=== PATIENT | male | born 1985 | race Asian ===

== ENCOUNTER 2021-08-01 12:13 | Outpatient (REF) | payer SELFPAY ==
[2021-08-01 13:40] LABS: Binax Internal Control QC Valid; Binax Now Covid-19 Ag Negative (Negative)
== END 2021-08-01 12:14 | disposition home or self-care (01) ==
LOC: HO.LAB 12:13
PROVIDERS: Visit Provider Internal Medicine
DX: Z20.822 Contact with and (suspected) exposure to COVID-19 (principal)
CPT/HCPCS: 36415; C9803

== ENCOUNTER 2021-08-12 12:13 | Outpatient (REF) | payer SELFPAY ==
[2021-08-12 15:39] LABS: Binax Internal Control QC Valid; Binax Lot number: 17705; Binax Now Covid-19 Ag Negative (Negative)
== END 2021-08-12 12:14 | disposition home or self-care (01) ==
LOC: HO.LAB 12:13
PROVIDERS: Visit Provider Internal Medicine
DX: Z20.822 Contact with and (suspected) exposure to COVID-19 (principal)
CPT/HCPCS: C9803

== ENCOUNTER 2024-10-17 09:00 | Outpatient (AMB) | payer OTHER, SELFPAY ==
--- NOTE | 2024-10-17 09:08 | A.OFFPC_ITS ---
Vital Signs 10/17/24 09:11 Height 5 ft 10 in Weight 178 lb 8 oz BMI 25.6 BP 106/64 Blood Pressure Location Lt brachial Position Sitting Pulse 59 Pulse Source Pulse Oximeter Pulse Oximetry (%) 97 Oxygen Delivery Method Room Air Intake Visit Reasons: establish care Medical Imaging Specialist Required: No Accompanied by: Spouse Allergies No Known Allergies Allergy (Verified 10/17/24 09:45) Medication List - Last Reconciled 10/17/24 by Tomas Jimenes MD csmpjdbb-hjv-psrph-vit K-lycop 400-20-300 mcg (One-A-Day Men's Multivitamin) 1 tab PO DAILY omega 4-czs-vql-fish oil 1,200 (144-216) mg (Fish Oil) 1 cap PO DAILY Tobacco use date assessed: 10/17/24 Dental Screening Dental Screen Date: 10/17/24 Did you have a dental visit in the last 12 months?: No Did you have a dental problem in the last 6 months where you did not have access to dental care?: No Was dental information given to patient?: No HPI establish care HPI Details Patient comes in today for his annual physical examination and to establish care - is a new patient to the practice Patient states that he currently feels okay but he has not seen a doctor in several years Thinks that the last time he saw a doctor was when he was still living in [place] several years ago States that he is generally healthy and recalls that the only problem he's had so far was that he was told in the past that he had a slightly high cholesterol level He denies any headaches or dizziness Denies any chest pains, no SOB No nausea/vomiting, no abdominal pain although he reports feeling gassy often lately Relates also that he has some loose stools/diarrhea every now and then - states that he would get them for a day or two whenever they occur He denies any acute urinary symptoms PFSH Medical History (Updated 10/17/24 @ 10:30 by Tomas Jimenes MD) Hyperlipidemia Surgical History (Updated 10/17/24 @ 09:49 by Tomas Jimenes MD) No pertinent past surgical history Family History Other Family history non-contributory Social History Housing: House Patient Tobacco Use Status: Never used Tobacco e-Cigarette/Vaping Use: Never Used Second Hand Smoke Exposure: No service: No Current occupational status: employed Current occupational exposures/hazards: No Cognitive needs: No Hearing needs: No Vision needs: Yes Questionnaire PHQ-9 Over the last 2 weeks, how often have you been bothered by any of the following problems? 1. Little interest or pleasure in doing things: not at all 2. Feeling down, depressed, or hopeless: not at all 3. Trouble falling or staying asleep, or sleeping too much: not at all 4. Feeling tired or having little energy: not at all 5. Poor appetite or overeating: not at all 6. Feeling bad about yourself - or that you are a failure or have let yourself or your family down: not at all 7. Trouble concentrating on things, such as reading the newspaper or watching television: not at all 8. Moving or speaking so slowly that other people could have noticed. Or the opposite - being so fidgety or restless that you have been moving around a lot more than usual: not at all 9. Thoughts that you would be better off or of hurting yourself in some way: not at all Total score: 0 Depression Screening Interpretation: Negative Depression Screening Done: Yes 53355 - PHQ-9 Billing: Yes Source: Developed by Drs. Danilo Latif, Minal Jiménez, Imtiaz Aguilera and colleagues, with an educational anali from [employer]. Thrive Questionnaire Date Thrive assessed: 10/17/24 I am a: Patient What is your living situation today?: I have a steady place to live Within the past 12 months, did the food you bought not last and you didn't have the money to get more?: Never true Within the past 12 months, did you worry whether your food would run out before you got money to buy more?: Never true Do you have trouble paying for medicines?: No Do you have trouble getting transportation to medical appointments?: No Do you have trouble paying your heating and electricity bill?: No Do you have trouble taking care of your child, family member or friend?: No Do you have trouble with day-to-day activities such as bathing, preparing meals, shopping, managing finances, etc.?: No Are you currently unemployed and looking for a job?: No Are you interested in more education?: No Please select the resources that you would like help with: None Currently or been in a relationship where the following occur: No concerns reported THRIVE Score: 0 AUDIT C Alcohol Use Questionnaire (AUDIT-C) 1. How often do you have a drink containing alcohol?: Never 3. How often do you have six or more drinks on one occasion?: Never Total Score: 0 Score Reviewed/Action Taken: Yes DEVIKA-7 AMB Questionnaire DEVIKA-7 Date DEVIKA - 7 assessed: 10/17/24 Feeling nervous, anxious, or on edge: 0 = Not at all Not being able to stop or control worryin = Not at all Worrying too much about different things: 0 = Not at all Trouble relaxin = Not at all Being so restless that it is hard to sit still: 0 = Not at all Becoming easily annoyed or irritable: 0 = Not at all Feeling afraid as if something awful might happen: 0 = Not at all Total DEVIKA-7 score (0-4 normal; 5-9 mild; 10-14 moderate; 15-21 severe): 0 Source: Developed by Drs. Danilo Latif, Minal Jiménez, Imtiaz Aguilera and colleagues, with an educational anali from [employer]. Review of Systems Const Denies chills, Denies fatigue, Denies fever(s), Denies headache(s), Denies malaise, Reports snoring and Denies weakness Eyes Denies blurry vision, Denies change in vision, Denies irritation and Denies itchy eyes ENT Denies dysphagia, Denies dizziness, Denies otalgia, Denies headache(s), Denies nasal congestion, Denies neck pain, Denies odynophagia and Denies sore throat Card Denies chest pain, Denies rapid heart rate, Denies irregular heart rhythm, Denies palpitations and Denies dyspnea Resp Denies chest congestion, Denies cough, Denies dyspnea, Reports snoring and Denies wheezing GI Denies abdominal pain, Reports bloating (at times - feels gassy often), Denies hematochezia, Denies constipation, Denies dysphagia, Denies heartburn, Reports diarrhea (occasional), Denies nausea, Denies odynophagia and Denies vomiting Denies hematuria, Denies difficulty urinating, Denies dysuria, Denies urinary fr equency and Denies urinary urgency Musc Denies back pain, Denies arthralgias, Denies joint swelling, Denies muscle weakness and Denies neck pain Skin/Breast Denies change in pigmentation, Denies lesions, Denies rash and Denies unusual bruising Neuro Denies dizziness, Denies headache(s), Denies paresthesias and Denies weakness Endo Denies fatigue and Denies palpitations Aller/Immun Denies itchy eyes and Denies wheezing Physical exam (Primary Care) Vital Signs: Last Vital Signs Pulse 59 10/17/24 09:11 BP 106/64 10/17/24 09:11 Pulse Ox 97 10/17/24 09:11 Oxygen Delivery Method Room Air 10/17/24 09:11 BMI result Body Mass Index 25.6 Tobacco/Smoking Status: Tobacco use Status Tobacco use date assessed 10/17/24 10/17/24 09:16 Patient Tobacco Use Status Never used Tobacco 10/17/24 09:16 e-Cigarette/Vaping Use Never Used 10/17/24 09:16 PHQ-9: PHQ-9 Score PHQ-9: Total score 0 10/17/24 09:10 Depression Screening Interpretation: Negative Thrive Assessment: Date of Thrive Assessment Date Thrive assessed 10/17/24 10/17/24 09:16 Currently or been in a relationship where the following occur: No concerns reported Const General: no acute distress, alert and awake Orientation/consciousness: patient oriented x3 HENMT Head: Yes normocephalic and Yes atraumatic Ears: external ears normal, TM's normal bilaterally and EAC's normal General nose exam: No nasal discharge present Face and sinus: Yes normal facial exam and Yes sinuses nontender Teeth and gingiva: dentition normal Throat: Yes posterior oropharynx normal and Yes tonsils normal (no TP congestion) Eyes Eyelids: Yes eyelids normal Conjunctivae: conjunctivae normal Pupils: Equal, round and reactive pupils present EOM: EOMs intact bilaterally Neck Neck: Yes no lymphadenopathy and Yes supple Thyroid: Thyroid normal Resp Auscultation: clear to auscultation bilaterally, no rales and no wheezes Cardio Rate: regular rate Rhythm: regular rhythm Heart sounds: no murmurs GI Palpation (GI): Soft to palpation, nontender and No hepatosplenomegaly present Auscultation: normal bowel sounds General: Yes no CVA tenderness Back/Spine/Pelvis Back: no CVA tenderness Thoracic/Lumbar Spine: thoracic and lumbar spine normal to inspection Skin Lesions: no lesions Rashes: no rashes Neuro General: patient oriented x3, moves all extremities, no focal motor deficits and CN's II-XI intact bilaterally Cranial nerves: Yes Equal, round and reactive pupils present Cognition (Neuro): normal cognition Gait exam (Neuro): Normal gait present Extrem General: Yes no clubbing, cyanosis or edema Coding Level of Care Code New Pt Prev Care 40-64y(72142) Diagnoses Annual physical exam Z00.00 Hyperlipidemia, unspecified hyperlipidemia type E78.5 Hyperlipidemia type: unspecified Loose stools R19.5 Additional Codes PHQ-9 - 33967 - PHQ-9 Billing: Yes ([id number]) Assessment & Plan Assessment & Plan (1) Annual physical exam: Code(s): Z00.00 - Encounter for general adult medical examination without abnormal findings Category: Medical Plan: Check labs (2) Hyperlipidemia: Code(s): E78.5 - Hyperlipidemia, unspecified Category: Medical Qualifiers: Hyperlipidemia type: unspecified Qualified Code(s): E78.5 - Hyperlipidemia, unspecified Plan: Discussed low cholesterol diet Will check his fasting lipids REGI for follow up (3) Loose stools: Code(s): R19.5 - Other fecal abnormalities Category: Medical Plan: Patient is advised that this may be mostly related to what he ate at the time of his symptoms He is instructed to try paying more attention to what he has eaten lately whenever his bouts of diarrhea occurs - discussed lactose intolerance as a likely possibility as well Will look into this further if his symptoms continue to persist or progress Plan Follow up in 6 months Orders: Orders Complete Blood Count Auto Diff Today D64.9 - Anemia, unspecified, Z00.00 - Encounter for general adult medical examination without abnormal findings Lipid Panel Today E78.00 - Pure hypercholesterolemia, unspecified, Z00.00 - Encounter for general adult medical examination without abnormal findings TSH reflex Free T4 Today E78.00 - Pure hypercholesterolemia, unspecified, Z00.00 - Encounter for general adult medical examination without abnormal findings UA CC w/rflx Micro + Cult Today R30.0 - Dysuria, Z00.00 - Encounter for general adult medical examination without abnormal findings Comprehensive [place]. Panel Fast Today E78.00 - Pure hypercholesterolemia, unspecified, Z00.00 - Encounter for general adult medical examination without abnormal findings Vitamin D 25-OH Total Today E55.9 - Vitamin D deficiency, unspecified, Z00.00 - Encounter for general adult medical examination without abnormal findings
[2024-10-17 09:11] VITALS: BP 106/64; PULSE 59; O2SAT 97; BMI 25.6
== END 2024-10-17 09:58 | disposition home or self-care (01) ==
LOC: HO.HMCH 09:01
PROVIDERS: PCP Internal Medicine; Visit Provider Internal Medicine
DX: Z00.00 Encounter for general adult medical examination without abnormal findings (principal); E78.5 Hyperlipidemia, unspecified; R19.5 Other fecal abnormalities

== ENCOUNTER 2024-10-17 09:00 | Outpatient (REF) | payer OTHER, SELFPAY ==
[2024-10-17 10:33] LABS: MANUAL DIFF FLAG NO
[2024-10-17 11:17] LABS: Basophils Percent Auto 0.4 % (0-2); Eosinophils Absolute Auto 0.1 X10*3/uL (0.0-0.4); Eosinophils Percent Auto 1.3 % (0-4); Hematocrit 46.5 % (42.0-52.0); Hemoglobin 15.2 g/dl (14.0-18.0); Imm Gran Abs Auto 0.01 X10*3/uL (0.00-0.03); Imm Gran Pct Auto 0.2 % (0.0-0.4); Lymphocytes Absolute Auto 1.7 X10*3/uL (1.2-4.9); Lymphocytes Percent Auto 35.7 % (20-40); Mean Corpuscular HGB Conc 32.7 g/dl (31.0-36.0); Mean Corpuscular Hemoglobin 28.4 pg (27.0-33.0); Mean Corpuscular Volume 86.9 fL (80.0-98.0); Mean Platelet Volume 10.3 fL (9.4-12.4); Monocytes Absolute Auto 0.3 X10*3/uL (0.1-1.2); Monocytes Percent Auto 6.4 % (2-11); Neutrophils Absolute Auto 2.6 x10*3/uL (2.0-8.3); Platelet Count 283 X10*3/uL (160-400); Red Blood Count 5.35 X10*6/uL (4.60-5.80); Red Cell Distribution Width 12.4 % (11.0-16.0); White Blood Count 4.7 X10*3/uL (4.8-10.8)
[2024-10-17 11:54] LABS: Appearance Urine Clear; Color Urine Yellow; Glucose Urine UA Negative (Negative); Leukocyte Esterase Urine Negative (Negative); Nitrite Urine Negative (Negative); PH 6.5 (5.0-9.0); Specific Gravity - Urine 1.025 (1.005-1.025); Urine Blood Negative (Negative); Urine Ketones Negative (Negative); Urine Protein Trace mg/dL (Neg-Trace)
[2024-10-17 12:05] LABS: Alanine Aminotransferase 97 U/L (0-40); Albumin Level 4.6 g/dL (3.5-5.0); Alkaline Phosphatase 112 U/L (39-117); Anion Gap 12 (12-20); Aspartate Amino Transferase 41 U/L (5-37); Bilirubin Total 0.9 mg/dL (0.0-1.0); Blood Urea Nitrogen 14 mg/dL (9-16); Calcium 9.1 mg/dL (8.4-10.2); Carbon Dioxide 29 mmol/L (22-29); Chloride 104 mmol/L (96-108); Cholesterol 191 mg/dL (<200); Estimated Glomerular Filt Rate > 60; Glucose Fasting 97 mg/dL (60-99); HDL Cholesterol 31 mg/dL (>40); LDL Cholesterol Calculated 130 mg/dL (<100); Potassium 3.8 mmol/L (3.3-5.1); Sodium 141 mmol/L (135-145); Total Protein 7.8 g/dL (6.5-8.0); Triglycerides 153 mg/dL (<150)
[2024-10-17 12:11] LABS: TSH reflex Free T4 1.99 uIU/mL (0.32-4.0); Vitamin D 25-OH Total 16.2 ng/mL (>30)
== END 2024-10-17 09:01 | disposition home or self-care (01) ==
LOC: HO.LAB 09:00
PROVIDERS: PCP Internal Medicine; Visit Provider Internal Medicine
DX: Z00.00 Encounter for general adult medical examination without abnormal findings (principal); E78.00 Pure hypercholesterolemia, unspecified; R19.5 Other fecal abnormalities; D64.9 Anemia, unspecified; E55.9 Vitamin D deficiency, unspecified; R30.0 Dysuria
CPT/HCPCS: 36415; 80053; 80061; 81003; 82306; 84443; 85025; 96127; 99386

== ENCOUNTER 2025-04-24 08:48 | Outpatient (AMB) | payer OTHER, SELFPAY ==
[2025-04-24 08:55] VITALS: BP 110/70; PULSE 74; O2SAT 95; BMI 25.7
--- NOTE | 2025-04-24 08:55 | A.OFFPC_ITS ---
Vital Signs 04/24/25 08:55 Height 5 ft 10 in Weight 179 lb 4 oz BMI 25.7 BP 110/70 Blood Pressure Location Lt brachial Position Sitting Pulse 74 Pulse Source Pulse Oximeter Pulse Oximetry (%) 95 Oxygen Delivery Method Room Air Intake Visit Reasons: hyperlipidemia Licensing Representative Required: No Accompanied by: Self / Same As Patient Allergies No Known Allergies Allergy (Verified 04/24/25 09:13) Medication List - Last Reconciled 04/24/25 by Tomas Jimenes MD qotffavs-ggo-rzsul-vit K-lycop 400-20-300 mcg (One-A-Day Men's Multivitamin) 1 tab PO DAILY omega 2-bkl-zll-fish oil 1,200 (144-216) mg (Fish Oil) 1 cap PO DAILY Tobacco use date assessed: 04/24/25 Dental Screening Dental Screen Date: 04/24/25 Did you have a dental visit in the last 12 months?: No Did you have a dental problem in the last 6 months where you did not have access to dental care?: No Was dental information given to patient?: No HPI hyperlipidemia HPI Details Patient comes in today for his follow up visit States that he feels okay He denies any headaches or dizziness Denies any chest pains, no SOB No nausea/vomiting, no abdominal pain but he reports that his stomach continues to feel bloated often No change in bowel habits noted - states that he moves his bowels regularly so he does not think that he has any issues with constipation States that he still has occasional loose stools that is mostly unchanged from previous Adds that he is still having trouble sleeping at night - states that he has tried taking some OTC Melatonin 10 mg at bedtime at times and he finds that they seem to be helping and is wondering if it is okay for him to be taking it often Lastly, states that he's had a recurrent itchy rash over his inguinal areas bilaterally for a few weeks now and would like to know what he can use to help clear this up He would like to go over the results of his labs done back in September 2024 in more details [facility] Medical History (Updated 04/24/25 @ 09:34 by Tomas Jimenes MD) Insomnia Tinea cruris Vitamin D deficiency Elevated LFTs Mixed hyperlipidemia Hyperlipidemia Surgical History No pertinent past surgical history Family History Other Family history non-contributory Social History Housing: House Patient Tobacco Use Status: Never used Tobacco e-Cigarette/Vaping Use: Never Used Second Hand Smoke Exposure: No service: No Current occupational status: employed Current occupational exposures/hazards: No Cognitive needs: No Hearing needs: No Vision needs: Yes Questionnaire Thrive Questionnaire Date Thrive assessed: 10/17/24 I am a: Patient What is your living situation today?: I choose not to answer this question Within the past 12 months, did the food you bought not last and you didn't have the money to get more?: I choose not to answer this question Within the past 12 months, did you worry whether your food would run out before you got money to buy more?: I choose not to answer this question Do you have trouble paying for medicines?: No Do you have trouble getting transportation to medical appointments?: No Do you have trouble paying your heating and electricity bill?: No Do you have trouble taking care of your child, family member or friend?: No Do you have trouble with day-to-day activities such as bathing, preparing meals, shopping, managing finances, etc.?: No Are you currently unemployed and looking for a job?: No Are you interested in more education?: No Please select the resources that you would like help with: None Currently or been in a relationship where the following occur: I choose not to answer THRIVE Score: 0 AUDIT C Alcohol Use Questionnaire (AUDIT-C) 1. How often do you have a drink containing alcohol?: Never 3. How often do you have six or more drinks on one occasion?: Never Total Score: 0 Score Reviewed/Action Taken: Yes DEVIKA-7 AMB Questionnaire DEVIKA-7 Date DEVIKA - 7 assessed: 10/17/24 Source: Developed by Drs. Danilo Latif, Minal Jiménez, Imtiaz Aguilera and colleagues, with an educational anali from [employer]. Review of Systems Const Denies chills, Reports difficulty sleeping, Denies fatigue, Denies fever(s), Denies headache(s) and Reports snoring ENT Denies dysphagia, Denies dizziness, Denies otalgia, Denies headache(s), Denies neck pain, Denies odynophagia and Denies sore throat Card Denies chest pain, Denies irregular heart rhythm, Denies palpitations and Denies dyspnea Resp Denies chest congestion, Denies cough, Denies dyspnea and Reports snoring GI Denies abdominal pain, Reports bloating (often), Denies hematochezia, Denies constipation, Denies dysphagia, Denies heartburn, Reports loose stools (occasionally), Denies nausea, Denies odynophagia and Denies vomiting Denies difficulty urinating, Denies dysuria and Denies urinary frequency Musc Denies back pain, Denies arthralgias and Denies neck pain Skin/Breast Reports rash ((+) recurrent itchy rash over the inguinal areas bilaterally) Neuro Denies dizziness, Denies headache(s) and Denies paresthesias Endo Denies fatigue and Denies palpitations Physical exam (Primary Care) Vital Signs: Last Vital Signs Pulse 74 04/24/25 08:55 BP 110/70 04/24/25 08:55 Pulse Ox 95 04/24/25 08:55 Oxygen Delivery Method Room Air 04/24/25 08:55 BMI result Body Mass Index 25.7 Tobacco/Smoking Status: Tobacco use Status Tobacco use date assessed 04/24/25 04/24/25 08:59 Patient Tobacco Use Status Never used Tobacco 04/24/25 08:59 e-Cigarette/Vaping Use Never Used 04/24/25 08:59 Thrive Assessment: Date of Thrive Assessment Date Thrive assessed 10/17/24 04/24/25 08:59 Currently or been in a relationship where the following occur: I choose not to answer Const General: no acute distress and alert HENMT Ears: TM's normal bilaterally and EAC's normal Throat: Yes posterior oropharynx normal and Yes tonsils normal (no TP congestion) Neck Neck: Yes no lymphadenopathy and Yes supple Thyroid: Thyroid normal Resp Auscultation: clear to auscultation bilaterally, no rales and no wheezes Cardio Rate: regular rate Rhythm: regular rhythm Heart sounds: no murmurs GI Palpation (GI): Soft to palpation and nontender Auscultation: normal bowel sounds General: Yes no CVA tenderness Back/Spine/Pelvis Back: no CVA tenderness Thoracic/Lumbar Spine: No lumbar spinal tenderness Skin Rashes: no rashes Extrem General: Yes no clubbing, cyanosis or edema Results Reviewed Results Reviewed: Laboratory Tests 10/17/24 10/17/24 10:25 10:26 WBC 4.7 L Hgb 15.2 Hct 46.5 Plt Count 283 Sodium 141 Potassium 3.8 Creatinine 0.77 Estimated GFR > 60 Fasting Glucose 97 Calcium 9.1 AST 41 H ALT 97 H Alkaline Phosphatase 112 Triglycerides 153 H Cholesterol 191 LDL Cholesterol, Calc 130 H HDL Cholesterol 31 L 25-OH Vitamin D Total 16.2 L TSH 1.99 Ur Specific [place] 1.025 Urine Protein Trace Urine Glucose (UA) Negative Urine Blood Negative Urine Nitrite Negative Ur Leukocyte Esterase Negative Coding Level of Care Code Est Pt Level 4 (63872) Diagnoses Mixed hyperlipidemia E78.2 Elevated LFTs R79.89 Vitamin D deficiency E55.9 Loose stools R19.5 Tinea cruris B35.6 Insomnia, unspecified type G47.00 Insomnia type: unspecified Assessment & Plan Assessment & Plan (1) Mixed hyperlipidemia: Code(s): E78.2 - Mixed hyperlipidemia Category: Medical Plan: Results of his labs done back in September 2024 reviewed and discussed with patient - he is advised that his cholesterol levels are elevated Reinforced low cholesterol diet Will have him recheck his labs and fasting lipids in 6 months for follow up (2) Elevated LFTs: Code(s): R79.89 - Other specified abnormal findings of blood chemistry Category: Medical Plan: He is advised that his LFTs are elevated, especially his ALT Patient states that he drinks alcohol very infrequently Will send him for abdominal US for further evaluation - he is advised that this may also help shed more light potentially on his issues with abdominal bloating and his occasional loose stools If not, then we may need to have him get some additional labs done for further evaluation (3) Vitamin D deficiency: Code(s): E55.9 - Vitamin D deficiency, unspecified Category: Medical Plan: His vitamin D was very low on his labs done back in September 2024 Will have him start taking OTC Vitamin D3 2000 units QD - advised that he can get this OTC if insurance does not cover this Rx (4) Loose stools: Code(s): R19.5 - Other fecal abnormalities Category: Medical Plan: Patient is advised that this may be mostly related to what he ate at the time of his symptoms He is instructed to try paying more attention to what he has eaten lately whenever his bouts of diarrhea occurs - discussed lactose intolerance as a likely possibility as well Will look into this further if his symptoms continue to persist or progress In the meantime, he is being sent for abdominal US for further evaluation and the US may help provide more information regarding this (5) Tinea cruris: Code(s): B35.6 - Tinea cruris Category: Medical Plan: Will start him on Nystatin powder 014063 units/gm to apply to his inguinal rash TID x 10 days and then PRN (6) Insomnia: Code(s): G47.00 - Insomnia, unspecified Category: Medical Qualifiers: Insomnia type: unspecified Qualified Code(s): G47.00 - Insomnia, unspecified Plan: Sleep hygiene discussed States that he has been taking OTC Melatonin 10 mg Q HS PRN lately and thinks that the Rx is helping He is advised that OTC Melatonin should be safe to take and he can continue taking this daily at bedtime as needed if it is helping Plan To return in 6 months for his next annual physical examination Orders: Orders Complete Blood Count Auto Diff 6 Months D64.9 - Anemia, unspecified, Z00.00 - Encounter for general adult medical examination without abnormal findings US abdomen complete Today R79.89 - Other specified abnormal findings of blood chemistry Comprehensive [place]. Panel Fast 6 Months E78.00 - Pure hypercholesterolemia, unspecified, Z00.00 - Encounter for general adult medical examination without abnormal findings Lipid Panel 6 Months E78.00 - Pure hypercholesterolemia, unspecified, Z00.00 - Encounter for general adult medical examination without abnormal findings TSH reflex Free T4 6 Months E78.00 - Pure hypercholesterolemia, unspecified, Z00.00 - Encounter for general adult medical examination without abnormal findings UA CC w/rflx Micro + Cult 6 Months R30.0 - Dysuria, Z00.00 - Encounter for general adult medical examination without abnormal findings Vitamin D 25-OH Total 6 Months E55.9 - Vitamin D deficiency, unspecified, Z00.00 - Encounter for general adult medical examination without abnormal findings Medications: New cholecalciferol (vitamin D3) 50 mcg PO DAILY 90 caps 3RF 90 days E55.9 - Vitamin D deficiency, unspecified nystatin 1 appl topical TID 60 grams 3RF 10 days
== END 2025-04-24 09:30 | disposition home or self-care (01) ==
LOC: HO.HMCH 08:49
PROVIDERS: PCP Internal Medicine; Visit Provider Internal Medicine
DX: E78.2 Mixed hyperlipidemia (principal); R79.89 Other specified abnormal findings of blood chemistry; E55.9 Vitamin D deficiency, unspecified; R19.5 Other fecal abnormalities; B35.6 Tinea cruris; G47.00 Insomnia, unspecified

== ENCOUNTER → 2025-04-24 08:48 | Outpatient (BNVA) | payer OTHER, SELFPAY | PROVIDERS: PCP Internal Medicine; Visit Provider Internal Medicine | DX: E78.2 Mixed hyperlipidemia (principal); R19.7 Diarrhea, unspecified; R21 Rash and other nonspecific skin eruption; R79.89 Other specified abnormal findings of blood chemistry; E55.9 Vitamin D deficiency, unspecified; R19.5 Other fecal abnormalities; B35.6 Tinea cruris; G47.00 Insomnia, unspecified | CPT/HCPCS: 99212 ==

== ENCOUNTER 2025-06-26 08:41 | Outpatient (REF) | payer OTHER, SELFPAY ==
--- NOTE | ~2025-06-26 | US_ITS ---
CLINICAL HISTORY: R79.89 - Other specified abnormal findings of blood chemistry US abdomen complete with color Doppler Comparison: None Findings: The visualized pancreas, aorta, and inferior vena cava are unremarkable. Liver is enlarged and diffusely echogenic. Right lobe 19.2 cm length. No focal hepatic masses. Common duct 4.0 mm diameter. Physiologic distention of the gallbladder. Nonmobile probably partially calcified polypoid lesions within the gallbladder measuring 2.5 x 1.4 x 1.5 cm. This may represent a gallbladder mass or adherent stone. Consider surgical consultation. No gallbladder wall thickening. No pericholecystic fluid. No sonographic Jung sign. Main portal vein antegrade. Right kidney normal size, 13.1 cm in length. Normal cortical width and echotexture. No solid or cystic renal masses. No nephrolithiasis. No hydronephrosis. Left kidney normal, 13.9 cm in length. Normal cortical width and echotexture. No solid or cystic renal masses. No nephrolithiasis. No hydronephrosis. Spleen measures 10.4 cm. No splenic masses. No ascites. No lymphadenopathy. Impression: 1. Hepatomegaly with increased hepatic echotexture reflecting hepatic steatosis or diffuse hepatocellular disease. 2. Partially calcified sessile polypoid lesion within the lumen of the gallbladder is nonmobile this may represent a gallbladder mass rather than adherent gallstone surgical consultation advised. This document has been electronically signed by: Singh Rosas MD on 06/26/2025 10:41:59
== END 2025-06-26 08:42 | disposition home or self-care (01) ==
LOC: HO.US 08:41
PROVIDERS: PCP Internal Medicine; Visit Provider Internal Medicine
DX: R79.89 Other specified abnormal findings of blood chemistry (principal)
CPT/HCPCS: 76700

== ENCOUNTER → 2025-06-26 08:44 | Outpatient (BNV) | payer OTHER, SELFPAY | PROVIDERS: PCP Internal Medicine; Visit Provider Radiology Diagnostic Radiology | DX: R16.0 Hepatomegaly, not elsewhere classified (principal); K63.5 Polyp of colon | CPT/HCPCS: 76700 ==